=== PATIENT | male | born 2000 ===

== ENCOUNTER 2024-12-07 19:08 | Emergency (ER) | payer BC ==
[~2024-12-07] VITALS: Ht 193 cm; Wt 89.5 kg
[2024-12-07 19:58] LABS: COVID AG,FIA SOURCE NASAL SWAB
[2024-12-07 20:18] LABS: INFLUENZA TYPE A NEGATIVE FOR TYPE A (NEGATIVE); INFLUENZA TYPE B NEGATIVE FOR TYPE B (NEGATIVE); SARS-COV2 (COVID) ANTIGEN,FIA Negative (Negative)
[2024-12-07] MEDS: ACETAMINOPHEN 500 MG TABLET PO ONE (22:22)
[2024-12-07] MEDS: IBUPROFEN 600 MG TABLET PO ONE (22:22)
[2024-12-07] MEDS ORDERED: ACET-3385 PO (22:31)
[2024-12-07] MEDS ORDERED: IBUP-1492 PO (22:31)
[2024-12-07 23:16] VITALS: BP 127/74; PULSE 100; RESP 18; TEMP 99; O2SAT 98
== END 2024-12-08 | disposition home or self-care (01) ==
LOC: EMS 19:08
DX: B34.9 Viral infection, unspecified (principal); Z90.89 Acquired absence of other organs; Z20.822 Contact with and (suspected) exposure to COVID-19
CPT/HCPCS: 87430; 87804; 99283